=== PATIENT | female | born 1980 | race Caucasian/White ===

== ENCOUNTER 2019-08-03 14:45 | Emergency (ER) | payer MEDICAID ==
--- NOTE | 2019-08-03 16:39 | EDM.PDOC ---
ED HPI GENERAL MEDICAL PROBLEM - General Chief Complaint: Lower Extremity Injury/Pain Stated Complaint: LEFT ANKLE INJURY Time Seen by Provider: 08/03/19 16:20 Source of Information: Reports: Patient History Limitations: Reports: No Limitations - History of Present Illness INITIAL COMMENTS - FREE TEXT/NARRATIVE: 38 year old female presents for evaluation and treatment of left foot and ankle pain. Patient reports yesterday she was walking and tripped. Describes stepping on an inverted ankle. Did fall but no head trauma. Patient has pain, swelling and bruising to the left foot and ankle. Ambulation is difficulty due to the pain. Reports she has torn ligaments in this ankle in the past. Has never had surgery to the foot or ankle. Location: Reports: Lower Extremity, Right Left Ankle Pain Score (Numeric/FACES): 6 - Related Data Allergies Allergy/AdvReac Type Severity Reaction Status Date / Time penicillin G Allergy Anaphylactic Verified 08/03/19 15:03 Shock Home Meds: Home Meds Cetirizine HCl [Zyrtec] 10 mg PO 08/03/19 [History] DULoxetine [Cymbalta] 60 mg PO DAILY 08/03/19 [History] Gabapentin [Neurontin] 10 mg 08/03/19 [History] Montelukast Sodium [Singulair] 10 mg PO 08/03/19 [History] Norethindrone [Norethindrone Acetate] 5 mg PO 08/03/19 [History] Omeprazole 40 mg PO 08/03/19 [History] traMADol [Ultram] 50 mg 08/03/19 [History] traZODone HCl [Trazodone HCl] 150 mg PO 08/03/19 [History] valACYclovir [Valtrex] 08/03/19 [History] Past Medical History HEENT History: Reports: Impaired Vision, Other (See Below) Other HEENT History: Hx of devated septum, glasses Cardiovascular History: Reports: None Respiratory History: Reports: None Gastrointestinal History: Reports: Irritable Bowel Syndrome Genitourinary History: Reports: Other (See Below) Other Genitourinary History: interstitial cystitis 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: Reports: Endometriosis Other 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: complete hysterectomy Musculoskeletal History: Reports: None Neurological History: Reports: Other (See Below) Other Neuro History: fibromyalgia Psychiatric History: Reports: None Endocrine/Metabolic History: Reports: None Hematologic History: Reports: None Immunologic History: Reports: None Oncologic (Cancer) History: Reports: None Dermatologic History: Reports: None - Past Surgical History Head Surgeries/Procedures: Reports: None Social & Family History - Tobacco Use Smoking Status *Q: Never Smoker - Caffeine Use Caffeine Use: Reports: Coffee, Soda - Recreational Drug Use Recreational Drug Use: No Review of Systems - Review of Systems Review Of Systems: See Below Musculoskeletal: Reports: Joint Pain (left ankle and foot pain ), Joint Swelling (left ankle) Skin: Reports: Bruising. Denies: Wound Neurological: Reports: Difficulty Walking. Denies: Numbness, Syncope, Tingling ED EXAM, GENERAL - Physical Exam Exam: See Below Exam Limited By: No Limitations General Appearance: Alert, WD/WN, No Apparent Distress, Obese Nose: Normal Inspection Throat/Mouth: Normal Inspection, Normal Voice, No Airway Compromise Respiratory/Chest: No Respiratory Distress, Lungs Clear, Normal Breath Sounds Cardiovascular: Normal Peripheral Pulses, Regular Rate, Rhythm, No Murmur Peripheral Pulses: 2+: Posterior Tibial (L), Dorsalis Pedis (L) Extremities: Normal Inspection (no obvious defmormities), Normal Capillary Refill, Limited Range of Motion (due to pain to the left foot and anklere), Other (reports pain to palpation to the lateral malleolus and the 5th metatarsal ). No: Increased Warmth, Redness Neurological: Alert, Oriented, Normal Cognition Psychiatric: Normal Affect, Normal Mood Skin Exam: Warm, Dry, Normal Color, Ecchymosis (slight bruising to the left lateral ankle) Course - Vital Signs Last Recorded V/S: Last Vital Signs Temp Pulse 88 08/03/19 15:00 Resp 20 08/03/19 15:00 BP 122/80 08/03/19 15:00 Pulse Ox - Radiology Interpretation Free Text/Narrative:: X-ray of the left foot and ankle shows no acute fractures or dislocations. formal radiology read pending. - Re-Assessments/Exams Free Text/Narrative Re-Assessment/Exam: 08/03/19 17:35 Reviewed the xray results with the patient. Recommendations for symptomatic care given. Discharge instructions as documented. Departure - Departure Time of Disposition: 17:37 Disposition: Home, Self-Care 01 Condition: Good Clinical Impression: Ankle sprain - Discharge Information *PRESCRIPTION DRUG MONITORING PROGRAM REVIEWED*: No *COPY OF PRESCRIPTION DRUG MONITORING REPORT IN PATIENT TRACY: No Instructions: Ankle Sprain, [id number] Referrals: Karina Carbone NP [Primary Care Provider] - Forms: ED Department Discharge Additional Instructions: Crutches and Russell wrap for the next week. Ice and elevate the ankle such as you able to. [id number] Tylenol or Motrin seen for pain relief. Follow-up with your primary care provider in one week for recheck. If you continue to have symptoms may require re-x-ray or possible an MRI to further evaluate the ankle ligaments. Please return to the ER if your symptoms change or worsen.
--- NOTE | 2019-08-07 06:46 | CR ---
Left ankle: Four views of the left ankle were obtained. Comparison: No previous ankle study. Soft tissue swelling is identified. Ankle mortise is symmetric. No fracture, dislocation or other bony abnormality is seen. Impression: 1. Soft tissue swelling. No acute bony abnormality is identified on the left ankle exam. Diagnostic code #2
--- NOTE | 2019-08-07 07:13 | CR ---
Left foot: Four views of the left foot were obtained. Comparison: No previous foot exam. Joint spaces are preserved. No fracture, dislocation or other bony abnormality is seen. Impression: 1. No abnormality is identified on left foot exam. Diagnostic code #1
== END 2019-08-03 17:30 | disposition home or self-care (01) ==
LOC: JD.ED 14:45
DX: S93.402A Sprain of unspecified ligament of left ankle, initial encounter (principal); Z88.0 Allergy status to penicillin; Z79.899 Other long term (current) drug therapy; W01.0XXA Fall on same level from slipping, tripping and stumbling without subsequent striking against object, initial encounter
CPT/HCPCS: 73610-26-LT; 73610-LT; 73630-26-LT; 73630-LT; 99283-25